=== PATIENT | male | born 1960 | race African-American/Black ===

== ENCOUNTER 2022-05-30 02:14 | Emergency (ER) | payer MEDICAID ==
[~2022-05-30] VITALS: Ht 177.8 cm; Wt 84.2 kg
[2022-05-30 02:16] VITALS: BP 109/68
[2022-05-30] MEDS ORDERED: COLO-487 MC (02:36)
[2022-05-30] MEDS ORDERED: [UNRECOGNIZED DRUG - CODE] MC (02:36)
== END 2022-05-30 03:00 | disposition home or self-care (01) ==
LOC: ER 02:14
DX: Z43.3 Encounter for attention to colostomy (principal)
CPT/HCPCS: 99281